=== PATIENT | male | born 1950 | race Caucasian/White ===

== ENCOUNTER 2017-06-03 12:49 | Inpatient (IN) | payer MEDICARE, BC ==
[2017-06-03] MEDS ORDERED: Morphine VIAL* 4 MG/ML VIAL (1 ml vial) IV PRN (13:24)
[2017-06-03] MEDS ORDERED: oxyCODONE/Acetamin 5/325 MG* TAB PO PRN (13:24)
[2017-06-03] MEDS ORDERED: Magnesium Hydroxide LIQ* 30 ML UDC PO PRN ×2 (13:24→13:50)
[2017-06-03] MEDS ORDERED: oxyCODONE TAB* 5 MG TAB PO PRN (13:24)
[2017-06-03] MEDS ORDERED: Morphine INJ* 2 MG/ML 1 ML CARPUJECT IV PRN (13:24)
--- NOTE | 2017-06-03 15:58 | RAD ---
INDICATION: Shoulder infection COMPARISON: None TECHNIQUE: PA and lateral dual-energy views were obtained. FINDINGS: Bones/Soft Tissues: There are no acute bony findings. Cardiomediastinal: The cardiomediastinal silhouette is normal. Lungs: There are no infiltrates. Pleura: There are no pleural effusions. Other: None IMPRESSION: NO ACTIVE DISEASE.
[2017-06-03 16:14] LABS: ABS Basophils 0.1 10^3/ul (0-0.2); ABS Eosinophils 0.1 10^3/ul (0-0.6); ABS Lymphocytes 1.9 10^3/ul (1.0-4.8); ABS Monocytes 0.7 10^3/ul (0-0.8); ABS Neutrophils 7.5 10^3/ul (1.5-7.7); ABS Nucleated RBC 0 10^3/ul; Eosinophil % 1.3 % (0-6); Hematocrit 39 % (42-52); Hemoglobin 13.6 g/dl (14.0-18.0); Lymphocyte % 18.5 % (25-47); Mean Corpuscular HGB Conc 35 g/dl (31-36); Mean Corpuscular Hemoglobin 29 pg (27-31); Mean Corpuscular Volume 82 fL (80-94); Mean Platelet Volume 6.8 um3 (7.4-10.4); Nucleated Red Blood Cells % 0; Platelet Count 376 10^3/ul (150-450); Red Blood Count 4.75 10^6/ul (4.0-5.4); Red Cell Distribution Width 14 % (10.5-15); White Blood Count 10.4 10^3/ul (3.5-10.8)
[2017-06-03 16:22] LABS: INR 1.18 (0.77-1.02)
[2017-06-03 16:35] LABS: EGFR Non-African American 111.3 (>60)
[2017-06-03] MEDS ORDERED: EPINEPHRINE 1 MG/ML 1 ML VIAL ONE ×2 (16:35→16:53)
[2017-06-03] MEDS ORDERED: Bupivacaine 0.25% SDV* 30 ML ONE (16:35)
[2017-06-03] MEDS ORDERED: ceFAZolin 2 GM PREMIX (*) 2 GM/50 ML BAG IVPB ONE (16:46)
[2017-06-03] MEDS ORDERED: Lidocain 1% EPI 1:100,000 * 30 ML MDV ONE (16:52)
[2017-06-03] MEDS ORDERED: Bupivacaine 0.5%* 50 ML VIAL ONE (16:52)
[2017-06-03] MEDS ORDERED: OXACILLIN IV SCH ×2 (17:00)
[2017-06-03] MEDS ORDERED: Oxacillin(*) 2 GM in NS 0.9% 100 ML* 100 ML IVPB SCH (17:00)
[2017-06-03] MEDS ORDERED: SODIUM CHLORIDE IV SCH ×2 (17:00)
[2017-06-03] MEDS ORDERED: Midazolam* 1 MG/ML 2 ML VIAL (2 MG) ONE (17:11)
[2017-06-03] MEDS ORDERED: fentaNYL* 50 MCG/ML 2 ML VIAL (100 MCG VIAL) ONE ×3 (17:11→19:39)
[2017-06-03] MEDS ORDERED: Propofol* 10 MG/ML 20 ML BTL IV PUSH ONE (17:36)
[2017-06-03] MEDS ORDERED: Lidocaine 2% PF * 5 ML VIAL ONE (17:36)
[2017-06-03] MEDS ORDERED: Ondansetron INJ* 2 MG/ML VIAL ONE (17:36)
[2017-06-03] MEDS ORDERED: Phenylephrine IV* 40 MCG/ML 10 ML SYRINGE ONE (17:47)
[2017-06-03] MEDS ORDERED: Ketorolac INJ* 30 MG/ML 1 ML VIAL ONE (18:01)
[2017-06-03] MEDS ORDERED: Acetaminophen TAB* 325 MG PO PRN (18:46)
[2017-06-03] MEDS ORDERED: Naloxone* 0.4 MG/ML 1 ML VIAL IV PRN (18:46)
[2017-06-03] MEDS ORDERED: HYDROmorphone INJ* 1 MG/ML CARPUJECT SYRINGE IV PRN (18:46)
[2017-06-03] MEDS ORDERED: PROCHLORPERAZINE INJ 5 MG/ML 2 ML VIAL IV PRN (18:46)
[2017-06-03] MEDS ORDERED: Metoclopramide IV* 5 MG/ML 2 ML VIAL IV PRN (18:46)
[2017-06-03] MEDS ORDERED: Dextrose 50% Syringe 50 ML* 25 GM/50 ML SYRINGE IV PUSH PRN (19:11)
[2017-06-03] MEDS ORDERED: Insulin LISPRO* 1 UNITS UNIT SUBCUT ONE (19:30)
[2017-06-03] MEDS: Insulin LISPRO* 1 UNITS UNIT SUBCUT SCH (19:34)
[2017-06-03] MEDS: fentaNYL* 50 MCG/ML 2 ML VIAL (100 MCG VIAL) IV PRN ×4 (19:41→20:00)
[2017-06-03] MEDS ORDERED: HYDROmorphone INJ* 2 MG/ML CARPUJECT SYRINGE ONE (20:03)
[2017-06-03] MEDS ORDERED: Magnesium Hydroxide LIQ* 30 ML UDC PO SCH (21:00)
[2017-06-03] MEDS: oxyCODONE/Acetamin 5/325 MG* TAB PO PRN (21:50)
[2017-06-03] MEDS: OXACILLIN IV SCH ×2 (21:58)
[2017-06-03] MEDS: SODIUM CHLORIDE IV SCH ×2 (21:58)
[2017-06-03] MEDS ORDERED: Zolpidem TAB* 5 MG PO PRN (23:02)
[2017-06-04] MEDS: Ketorolac INJ* 15 MG/ML 1 ML VIAL IV PUSH SCH ×4 (01:53→21:32)
[2017-06-04] MEDS: SODIUM CHLORIDE IV SCH ×12 (01:58→21:34)
[2017-06-04] MEDS: OXACILLIN IV SCH ×12 (01:58→21:34)
--- NOTE | 2017-06-04 02:25 | CONS ---
CC: Peter Jeffers MD * CONSULTATION NOTE: DATE OF CONSULT: 06/03/17 TIME OF EVALUATION: 2200 PRIMARY CARE PHYSICIAN: Peter Jeffers MD REQUESTING PHYSICIAN FOR CONSULTATION: Dr. Wyatt. REASON FOR CONSULT: Medical management. HISTORY OF PRESENT ILLNESS: This is a 67-year-old male with a past medical history of rheumatoid arthritis, on Rituxan and diabetes, who was directly admitted after having his right shoulder joint aspirated and found to be concerning for a septic joint. He was taken to the OR this evening for a washout of his right shoulder. His culture has come back positive for MSSA. The patient states he was at an arena on 05/02/17. When he went to stretch his arms out, when he brought his right arm back, he felt acute sudden pain in his right shoulder. He has been having pain since then. He did go to [place] to get a workup done, recommended orthopedic evaluation. He could not get in to see Dr. Wyatt until 05/29/17. At that time, an MRI was ordered. He followed up with Dr. Wyatt today on 06/03/17 where the MRI showed large effusion. He aspirated it. It was a viscous yellowish green fluid and he was called. The Gram stain was positive for 4+ gram-positive cocci. The patient states a week prior to this, he began having night sweats and chills. He thought it was related to the medications he was taking. He denied any fevers. No nausea or vomiting. No chest pain. No shortness of breath. He denied any recent injections into his shoulder joint. Denies any other trauma other than stretching his arms on 05/02/17. Otherwise, review of systems is negative. PAST MEDICAL HISTORY: 1. Rheumatoid arthritis, on Rituxan. 2. Diabetes. 3. History of polio. 4. Obesity. 5. Hyperlipidemia. PAST SURGICAL HISTORY: 1. History of neck surgery. 2. History of hernia repair. 3. History of vasectomy. 4. History of left knee surgery. MEDICATIONS: 1. Metformin 1000 mg p.o. b.i.d. 2. Pravastatin 20 mg at bedtime. 3. Fluoxetine 10 mg daily. 4. Celecoxib 100 mg p.o. b.i.d. as needed. 5. Ambien 5 mg at bedtime as needed. 6. Rituxan infusion q.6 months, his last infusion was in December. ALLERGIES: AZITHROMYCIN. FAMILY HISTORY: No history of early cardiac disease. Otherwise unremarkable. SOCIAL HISTORY: The patient is . He is retired from the [email or web address] office. He quit smoking 20 years ago. He smoked less than a pack per day for 20 years. Rare alcohol use. No illicit drug use. His healthcare proxy is his son, Davis. He is . REVIEW OF SYSTEMS: A 14-point review of systems as mentioned in the HPI. CODE STATUS: Full code. PHYSICAL EXAM: Vitals: Temp 98.4, pulse rate 93, respiratory rate 16, oxygen saturation 96% on room air, and blood pressure 148/73. General: In no acute distress. Resting comfortably. HEENT: Head is normocephalic. Pupils are equal, round, and reactive to light and anicteric. Oropharynx: Mucous membranes are moist. Neck: Supple. No lymphadenopathy. Cardiac: Regular rate and rhythm. Soft systolic murmur heard throughout. Respiratory: Clear to auscultation. No wheezing, rhonchi, or rales. Abdomen: Soft, nontender, nondistended. Extremities: No cyanosis, clubbing, or edema. +2 DP. He has a large bandage wrapped with ice applied over his right shoulder. His extremities are warm and good pulses bilaterally. Neurological: Alert, awake, and oriented x3. No gross focal neurological deficits. DIAGNOSTIC STUDIES/LAB DATA: White count 10.4, hemoglobin 13.6, hematocrit 39, platelets 376. INR is 1.18. Sodium 134, potassium 4, chloride 99, bicarb 27, BUN 14, creatinine 0.71, glucose 310, CRP of 119. ASSESSMENT: This is a 67-year-old male with a past medical history of rheumatoid arthritis, on Rituxan who presented as a direct admission for a right shoulder washout in the setting of a positive joint aspiration of MSSA. Right septic joint. Cultures are positive for MSSA. He is on Oxacillin, would consider Infectious Disease consult to determine long-term management of IV antibiotics and transition to p.o. antibiotics. CHRONIC MEDICAL PROBLEMS: 1. Diabetes. We will hold his oral agents and continue him on lispro. He may need to be placed on Lantus. We will add on a hemoglobin A1c. 2. For his hyperlipidemia, we will hold the pravastatin as we do not have this on formulary. 3. Continue him on Ambien as needed and his fluoxetine. 4. FEN. Diabetic diet. 6. DVT prophylaxis per Surgery. 7. Code status full code. Thank you for this consultation. We will follow along with you. TIME SPENT: Greater than 45 minutes spent doing the consultation, more than half the time was spent in direct patient contact. [id number] #: [id number] FAVIO
[2017-06-04] MEDS: Heparin VIAL(*) 5000 UNITS/ML VIAL (FIVE THOUSAND) SUBCUT SCH ×3 (05:50→21:36)
[2017-06-04] MEDS ORDERED: metFORMIN* 1,000 MG TAB PO SCH ×2 (06:00→08:00)
[2017-06-04 06:08] LABS: Hematocrit 39 % (42-52); Hemoglobin 13.4 g/dl (14.0-18.0); Mean Platelet Volume 6.6 um3 (7.4-10.4); Platelet Count 336 10^3/ul (150-450)
[2017-06-04 06:21] LABS: EGFR Non-African American 83.6 (>60)
--- NOTE | 2017-06-04 08:59 | PN ---
Progress Note - Progress Note Date of Service: 06/04/17 SOAP: Subjective: []Patient seen at bedside. He feels well without fever or chills. Right shoulder pain is still present but improved. He has not tried to move his shoulder yet as he has become used to guarding it. Objective: [] Vital Signs Temp 97.5 F 06/04/17 03:41 Pulse 88 06/04/17 03:41 Resp 18 06/04/17 07:37 BP 136/69 06/04/17 03:41 Pulse Ox 92 06/04/17 03:41 Intake & Output 06/03/17 06/04/17 06/04/17 18:59 06:59 18:59 Intake Total 600 1048 Output Total 2049 Balance 600 -1002 Weight 200 lb 191 lb 14.4 oz Intake: IV Fluids 600 LR 600 IVPB 188 Oxacillin 188 Oral 0 860 Output: Urine 2049 Other: Date of Last Bowel 06/03/17 Movement # Bowel Movements 1 0 Estimated Stool Amount Medium Laboratory Last Values WBC 10.4 10^3/ul (3.5-10.8) 06/03/17 16:03 RBC 4.75 10^6/ul (4.0-5.4) 06/03/17 16:03 Hgb 13.4 g/dl (14.0-18.0) L 06/04/17 05:59 Hct 39 % (42-52) L 06/04/17 05:59 MCV 82 fL (80-94) 06/03/17 16:03 MCH 29 pg (27-31) 06/03/17 16:03 MCHC 35 g/dl (31-36) 06/03/17 16:03 RDW 14 % (10.5-15) 06/03/17 16:03 Plt Count 336 10^3/ul (150-450) 06/04/17 05:59 MPV 6.6 um3 (7.4-10.4) L 06/04/17 05:59 Neut % (Auto) 72.4 % (38-83) 06/03/17 16:03 Lymph % (Auto) 18.5 % (25-47) L 06/03/17 16:03 [place] % (Auto) 7.2 % (0-7) H 06/03/17 16:03 Eos % (Auto) 1.3 % (0-6) 06/03/17 16:03 Baso % (Auto) 0.6 % (0-2) 06/03/17 16:03 Absolute Neuts (auto) 7.5 10^3/ul (1.5-7.7) 06/03/17 16:03 Absolute Lymphs (auto) 1.9 10^3/ul (1.0-4.8) 06/03/17 16:03 Absolute Monos (auto) 0.7 10^3/ul (0-0.8) 06/03/17 16:03 Absolute Eos (auto) 0.1 10^3/ul (0-0.6) 06/03/17 16:03 Absolute Basos (auto) 0.1 10^3/ul (0-0.2) 06/03/17 16:03 Absolute Nucleated RBC 0 10^3/ul 06/03/17 16:03 Nucleated RBC % 0 06/03/17 16:03 ESR 0 mm/Hr (0-40) 06/03/17 16:03 INR (Anticoag Therapy) 1.18 (0.77-1.02) H 06/03/17 16:02 Sodium 136 mmol/L (139-145) L 06/04/17 05:59 Potassium 4.4 mmol/L (3.5-5.0) 06/04/17 05:59 Chloride 102 mmol/L (101-111) 06/04/17 05:59 Carbon Dioxide 27 mmol/L (22-32) 06/04/17 05:59 Anion Gap 7 mmol/L (2-11) 06/04/17 05:59 BUN 19 mg/dL (6-24) 06/04/17 05:59 Creatinine 0.91 mg/dL (0.67-1.17) 06/04/17 05:59 Est GFR ( Amer) 107.5 (>60) 06/04/17 05:59 Est GFR (Non-Af Amer) 83.6 (>60) 06/04/17 05:59 BUN/Creatinine Ratio 20.9 (8-20) H 06/04/17 05:59 Glucose 398 mg/dL (70-100) H 06/04/17 05:59 POC Glucose (mg/dL) 390 mg/dL (70-100) H 06/04/17 07:27 Calcium 8.6 mg/dL (8.6-10.3) 06/04/17 05:59 C-Reactive Protein 119.52 mg/L (< 5.00) H 06/03/17 16:03 General: Well appearing, NAD RUE: Right shoulder dressing CDI. No surrounding erythema. Diffuse moderate tenderness remains but certainly improved from yesterday's exquisite tenderness. Shoulder PROM FF to 80 degrees, ABD to 30 degrees endpoints limited by pain. Elbow ROM much improved easily 0-90. Wrist flexion/extension intact. Digits 1-5 with intact flexion, extension, abduction, adduction, finger to thumb opposition. Sensation intact distally. 2+ radial pulse, capillary refill less than two seconds. Assessment: []POD 1 s/p right shoulder washout + MSSA Plan: []Blood cultures and echo pending ID consult placed PT/OT ROM/WBAT as tolerated Heparin while in house
[2017-06-04] MEDS: FLUoxetine CAP* 10 MG PO SCH (09:09)
[2017-06-04] MEDS: Insulin LISPRO* 1 UNITS UNIT SUBCUT SCH ×4 (09:09→21:38)
[2017-06-04] MEDS: oxyCODONE/Acetamin 5/325 MG* TAB PO PRN ×3 (10:15→21:34)
--- NOTE | 2017-06-04 10:29 | ECHO ---
Patient: MILLA BURR [facility] Rec#: [id number] : 1950 Date: 06/04/2017 Age: 67y Height: 185.4 cm / 73.0 in Weight: 86.6 kg / 190.9 lbs Sex: M BSA: 2.1 Room#: 352 Admit Date#: 06/03/2017 Type: Inpatient Referring: Melissa Covington MD Reading: Shaila Parsons MD Yeast Pusher: Charlotte Bishop RN RDCS CC: Peter Jeffers MD Transthoracic Echocardiogram Indication: Cardiac murmur, septic right shoulder BP: 136/69 HR: 86 Rhythm: NSR with PACs Findings History: RA, DM, HLD, obesity, post-polio syndrome, former smoker Technical Comments: The study quality is fair. The study is technically limited due to the patient's smoking history. Completed at 0900. Left Ventricle: The left ventricular chamber size is normal. There is no left ventricular hypertrophy. Global left ventricular wall motion and contractility are within normal limits. There is normal left ventricular systolic function. The estimated ejection fraction is 55-60%. There is no consistent Doppler evidence of clinically significant diastolic dysfunction. Left Atrium: The left atrial chamber size is normal. Right Ventricle: The right ventricular chamber size and systolic function are within normal limits. Right Atrium: The right atrial cavity size is normal. Aortic Valve: The aortic valve is trileaflet. The aortic valve leaflets are mildly thickened.Sclerosis of the NCC, calcified nodule on the edge of the cusp, central, c/w calcific sclerosis. RCC mildly slerotic as well. Normal valve excuresion. There is aortic annular calcification. There is mild aortic regurgitation. There is no evidence of aortic stenosis. There is no aortic vegetation present. Mitral Valve: Mild mitral annular calcification present. The mitral valve leaflets are mildly thickened. Mild subvalvular thickening of the mitral valve is visualized. There is no evidence of mitral regurgitation. There is no evidence of mitral stenosis. No vegetation is observed on the mitral valve. Tricuspid Valve: The tricuspid valve leaflets are mildly thickened. There is trace tricuspid regurgitation. Unable to estimate the right ventricular systolic pressure. There is no tricuspid stenosis. No vegetation is observed on the tricuspid valve. Pulmonic Valve: The pulmonic valve appears normal. There is a trace pulmonic regurgitation. There is no pulmonic stenosis. No vegetation is observed on the pulmonic valve. Pericardium: There is no significant pericardial effusion. A pericardial fat pad is visualized. Aorta: There is no dilatation of the ascending aorta. There is no dilatation of the aortic arch. There is mild dilatation of the aortic root. Pulmonary Artery: The main pulmonary artery appears normal. Venous: The inferior vena cava appears normal in size. There is less than 50% respiratory change in the inferior vena cava dimension. Conclusions The left ventricular chamber size is normal. Global left ventricular wall motion and contractility are within normal limits. The estimated ejection fraction is 55-60%. The right ventricular chamber size and systolic function are within normal limits. No vegetations identified, sclerotic left sided valves. The aortic valve is trileaflet with sclerosis of the NCC, calcified nodule on the edge of the cusp, central, c/w calcific sclerosis. RCC mildly slerotic as well and all leflets show normal valve excursion. There is mild aortic regurgitation. The mitral valve leaflets are mildly thickened. There is trace tricuspid regurgitation. There is a trace pulmonic regurgitation. No prior echo to compare. Measurements Name Value Normal Range RVIDd (AP) 2D 2.6 cm (0.9 - 2.6) RVDdMajor (2D) 3.1 cm (2.2 - 4.4) RAd ISD 4CH 3.8 cm (3.4 - 4.9) RA (A4C)W 3.6 cm (2.9 - 4.6) IVSd (2D) 1 cm (0.6 - 1) LVPWd (2D) 1 cm (0.6 - 1) LVIDd (2D) 4 cm (3.6 - 5.4) LVIDs (2D) 2.4 cm - LV FS (2D) 40 % (25 - 45) Aortic Annulus 2.2 cm (1.4 - 2.6) Ao root diameter (2D) 3.9 cm (2.1 - 3.5) Ascending Ao 3.2 cm (2.1 - 3.4) Aortic arch 2.1 cm (1.8 - 3.4) LA dimension (AP) 2D 3.4 cm (2.3 - 3.8) LAd ISD 4CH 4.5 cm (2.9 - 5.3) LA ISD 4CH W 3.4 cm (2.5 - 4.5) Name Value Normal Range LA ESV SP 4CH (A/L) 25 ml - LA ESV SP 2CH (A/L) 29 ml - LA ESV BP (A/L) 27 ml - LA ESV BP (A/L) index 13 ml/m2 - LA ESV SP 4CH (MOD) 24 ml - LA ESV SP 2CH (MOD) 28 ml - Name Value Normal Range MV E-wave Vmax 0.57 m/sec - MV deceleration time 262 msec - MV A-wave Vmax 0.71 m/sec - MV E:A ratio 0.8 ratio - LV septal e' Vmax 0.07 m/sec - LV lateral e' Vmax 0.11 m/sec - LV E:e' septal ratio 8.1 ratio - LV E:e' lateral ratio 5.2 ratio - Name Value Normal Range AV Vmax 1.4 m/sec - AV VTI 26.1 cm - AV peak gradient 8.1 mmHg - AV mean gradient 4.8 mmHg - LVOT Vmax 1 m/sec - LVOT VTI 17.4 cm - LVOT peak gradient 4.2 mmHg - LVOT mean gradient 2.5 mmHg - CHA Vmax 0.79 m/sec - Name Value Normal Range IVC diameter 2.1 cm - Name Value Normal Range PV Vmax 0.82 m/sec -
[2017-06-04 10:43] LABS: Urine Appearance Clear; Urine Blood Negative (Negative); Urine Color Yellow; Urine Ketones 1+ (Negative); Urine Protein Negative (Negative); Urine Specific Gravity 1.032 (1.010-1.030); Urine Urobilinogen Negative (Negative)
--- NOTE | 2017-06-04 10:43 | HP ---
HISTORY AND PHYSICAL: DATE OF ADMISSION: 06/03/17 ATTENDING PROVIDER: Dr. Wyatt * (DICTATED BY CALEB HERBERT) CHIEF COMPLAINT: Right shoulder pain. HISTORY OF PRESENT ILLNESS: Mr. Payton is a 67-year-old male who presents to [facility] today after being seen at our [facility] by Dr. Wyatt. In our office today, the patient was having difficulty with active range of motion of his elbow due to pain in the shoulder as well as any range of motion in the shoulder whatsoever. First onset of pain was May 02 while the patient was seated in a stadium chair, he reached across the chair, and when he moved his arm back to neutral position, he had sudden pain in his right shoulder which has been present ever since worsening throughout the past month. The patient reports that he cannot lift his right arm and it is very difficult for him to sleep. Pain today is rated as a 6/10, localized to the right shoulder. One to two weeks ago, the patient reports that he did have subjective fever and chills, which have now resolved. He denies any trauma to the shoulder. He has never had surgery on the shoulder. He has no prosthetic joints. The patient does have a history of rheumatoid arthritis for which he is on Rituxan infusions with his next infusion in 3 weeks. 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 Warner in [place], his primary care is Dr. Jeffers. The patient does not have a history of frequent infections. Today at the office , his shoulder was aspirated revealing 12 mL of a thick viscous yellow-greenish fluid, which was positive for 4+ gram positive cocci indicating infection of the right glenohumeral joint. The patient has no history of heart attack, stroke or blood clot. He has no history of blood transfusion. He has tolerated the anesthesia well in the past. PAST MEDICAL HISTORY: Positive for: 1. Postpolio syndrome. 2. Diabetes. 3. Rheumatoid arthritis. 4. Obesity. 5. Hyperlipidemia. 6. Epistaxis on occasion . PAST SURGICAL HISTORY: 1. Cervical fusion. 2. Hernia repair. 3. Vasectomy. 4. Arthroscopic knee surgery. 5. Cholecystectomy. FAMILY HISTORY: Positive for diabetes. SOCIAL HISTORY: The patient lives alone in [place]. He is a former smoker, he quit 18 years ago. 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 REVIEW OF SYSTEMS: General: The patient feels well. Aside from right shoulder pain, he denies any fever or chills. HEENT: The patient denies any headache, changes in vision, changes in hearing. Cardiovascular: The patient denies any chest pain, denies any history of cardiac disease. Denies any history of heart attack. Respiratory: The patient denies shortness of breath or cough. GI: The patient confirms recent constipation, which is now resolved. Denies any abdominal upset, nausea, vomiting, diarrhea. Genitourinary: The patient denies any dysuria or urinary obstruction. Musculoskeletal: The patient has right shoulder pain without history of trauma. He has no pain in his other joints, though he does have a history of left knee effusion, which resolved without antibiotic treatment, resolved with steroid injection only. Skin: No rashes. No open lesions. No drainage from the right shoulder. Neuro: No history of stroke. Endocrine: History of diabetes. Hematology: No easy bleeding or bruising. No history of blood clot. PHYSICAL EXAMINATION GENERAL: The patient is sitting in bed, he is well-appearing, in no acute distress. He carries on appropriate conversation. VITAL SIGNS: Temperature 98.0, pulse 89, respiratory rate 20, oxygen saturation 97, blood pressure 151/74. HEENT: Head is normocephalic, atraumatic. Extraocular movements intact. RESPIRATORY: Clear to auscultation bilaterally without wheezes, rales or rhonchi. CARDIO: S1, S2. No obvious murmur heard. ABDOMEN: Bowel sounds normoactive, soft, nontender without any notable masses. MUSCULOSKELETAL: Right upper extremity: No erythema, draining lesions or ecchymosis about the right shoulder. The skin is intact. Range of motion of the shoulder is very limited, limited to roughly 30 degrees of forward flexion and abduction due to exquisite pain that causes the patient to grimace. He is tender to palpation throughout the shoulder without any area of point tenderness. He similarly has much difficulty with range of motion of the right elbow, though he reports that this is due to tension and pain in the shoulder rather than in the elbow itself. He has no tenderness to palpation throughout the elbow. He has good range of motion of the elbow passively, but when he actively engages elbow, he has great pain in his right shoulder. He has full range of motion in his wrist and digits of the right upper extremity. He moves bilateral lower extremities and the left upper extremity well. NEUROLOGIC: Sensation intact throughout the right upper extremity as well as distally in the left upper extremity as well as bilateral lower extremities. SKIN: The patient has no erythema, no rashes, no lesions, no draining lesions noted. DIAGNOSTIC DATA/LABORATORY STUDIES: MRI as reviewed in the office today showed thinning of his supraspinatus as well as labral tear as well as a large effusion of the glenohumeral joint. Laboratory Studies: Synovial fluid from the right shoulder was yellow and cloudy. White blood cell count 189,765. Microbiology revealed Staph aureus. ASSESSMENT: Right shoulder effusion and infection. PLAN: The patient will be taken to the operating room this evening for washout of his right shoulder. He will be n.p.o. until this time. His oral hyperglycemic medication should be held until after surgery and until he has resumed a normal diet. The hospitalist service has been consulted. In the meanwhile, I have ordered a CBC, CRP, CMP, sed rate, INR, blood cultures, urinalysis, chest x-ray and EKG. The patient should have an echocardiogram, which is okay until after surgery per Medicine due to a MSSA infected joint. CALEB HERBERT [id number]/CPS #: [id number] MTDD
[2017-06-04] MEDS ORDERED: Insulin LISPRO* 1 UNITS UNIT SUBCUT ONE (13:21)
[2017-06-04] MEDS ORDERED: Dextrose 50% Syringe 50 ML* 25 GM/50 ML SYRINGE IV PUSH PRN (13:21)
--- NOTE | 2017-06-04 15:14 | OP ---
DATE OF OPERATION: 06/03/17 - ROOM #352 DATE OF : 54 SURGEON: Dwayne Wyatt MD ANESTHESIA: Regional and general. PRE-OP DIAGNOSIS: Right shoulder infection. POST-OP DIAGNOSIS: Right shoulder infection. OPERATIVE PROCEDURE: 1. Right shoulder arthroscopy. 2. Arthroscopic washout. 3. Debridement. ANESTHESIA: General. ESTIMATED BLOOD LOSS: Minimal. COMPLICATIONS: None. SUMMARY: Mr. Payton is a 67-year-old male who I had last seen in 2012. He had represented to the office on 05/29/17 complaining of right shoulder pain. On , he had reported a minor trauma to the shoulder where he had been stretching on a stadium position with the arm stretched out and had felt a sudden pain in the right shoulder with bringing the shoulder forward. He did not have any pain. He did not have any fevers. There was no open injury to the shoulder. When I had examined him on the 05/29/17, he had significant pain even trying to just bring the elbow upwards into flexion. So, I thought he had a dislocation of his biceps tendon, which would explain some of the pain when moving his elbow. He underwent an MRI and presented to the office this morning with those results. It showed that he had a significant effusion to the shoulder. I discussed with him that I would like to see what is going on with the shoulder because if this was just an inflammatory reaction, a steroid injection would help. So, he was aspirated in the office and 12 cc of a thick pus like fluid was obtained. This was sent for culture, Gram stain and analysis and it came back with 176,000 white blood cells, as well as 4+ neutrophils, with 4+ gram-positive cocci. PCR found that it was staph, but not MRSA. Once I saw the positive cocci on Gram stain, I had called him and had him directly admitted to the floor, so that he would hopefully be seen by the hospitalist service and I added him on to the OR for a washout. I discussed with him that washing of the shoulder should help to decrease the bacterial load and hopefully let the shoulder feel better. Risks of surgery such as continued infections, scar formation and pain were discussed and he did wish to proceed. DESCRIPTION OF PROCEDURE: The patient was brought back to the OR and LMA was placed. He was then sat up in the beach-chair position. Care was taken to make sure that his left arm was nicely padded, so that his cubital tunnel was nice and free. Right shoulder area was prepped and draped. Portal sites were preinjected using a 50:50 mixture of 0.5% Marcaine with 1% lidocaine with epinephrine. A standard posterior portal was made first using a #11 blade blunt trocar. The sheath was easily introduced into the shoulder and pulling up the trocar, several cc of thick fluid oozed out. Camera was introduced into the sheath and suction was run. Fluids were turned on and letting the shoulder wash out to remove some of the pus was first done. It could be seen he was not denuded of cartilage on the glenohumeral joint surfaces. Under direct vision, using an outside in technique, anterior portal was established and a shaver was introduced and used to gently debride the synovium and I allowed the shaver to run. Once I had gotten a good view within the shoulder joint, 3 L bag of saline , which had been mixed with 30 cc of Betadine, was opened so that by this I would get the Betadine solution in all the nooks and crevices within the shoulder joints. Shaver was run almost continuously through this and a total of 5 L normal saline and 6 L of the Betadine saline were run through the shoulder. By the end, it looked much top cleaner. All instrumentation was removed and the portal sites were closed using 4-0 nylon sutures. Shoulder was injected with a total of 20 cc of Marcaine mixed with 20 of lidocaine. Sterile dressing was applied in the OR. The patient had the LMA removed in the arm, was stable on transfer to the recovery room. [id number]/[facility] #: [id number] [facility] HOSPITALGladys
--- NOTE | 2017-06-04 15:39 | CONS ---
CONSULTATION REPORT: DATE OF CONSULT: 06/04/17 REQUESTING PHYSICIAN: Dr. Covington CONSULTING SERVICE: Infectious Disease. REASON FOR CONSULT: Septic right shoulder. IMPRESSION: 1. Septic arthritis of the right shoulder, glenohumeral joint due to methicillin- sensitive Staphylococcus aureus. He has had incision and debridement on 06/03/17. 2. Rheumatoid arthritis, on Rituxan. RECOMMENDATIONS: Include; 1. Aquacillin 2 g every 4 hours while he is here and transition to cefazolin 2 g every 8 hours for outpatient therapy to complete 4 to 6 weeks of treatment. 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 Warner in [place] regarding timing of his next rituximab treatment. I discussed with Mr. Payton the need for a PICC line, home IV antibiotics, weekly blood draws, and close followup. 2. We will follow up the blood cultures and his transesophageal echocardiogram result. HISTORY OF PRESENT ILLNESS: This is a 67-year-old male with rheumatoid arthritis, on rituximab, admitted with right shoulder pain. It had there for 2 to 3 weeks and it was progressively worse and included fever, chills, sweats with decreased appetite. He had a shoulder aspirated by Dr. Wyatt as an outpatient. That fluid was sent for analysis and had 190,000 white cells, 92% neutrophils, 4+ gram- positive cocci, the PCR is positive for Staph aureus and negative for methicillin- resistant Staphylococcus aureus. C-reactive protein initially 120. He had a washout last night, which he tolerated well. He has had ongoing shoulder pain. No other joints are bothering him and no spine pain. There is no prosthetic material present. He has not had an infection requiring hospitalization in the past. He did have a large effusion of the left knee while living in [place], which was treated with aspiration and steroid injection and has been asymptomatic since. He did not recall other rash , other joint involvement or prolonged pneumonia while living in [place]. PAST MEDICAL HISTORY: 1. Rheumatoid arthritis. 2. Diabetes. 3. Postpolio syndrome. 4. Obesity. 5. Hyperlipidemia. 6. History of cervical spine surgery. 7. Status post hernia repair. 8. Status post vasectomy. MEDICATIONS: 1. Fluoxetine. 2. Ketorolac. 3. Magnesium. 4. Oxacillin 2 g every 4 hours. 5. Ambien. 6. Pravastatin. ALLERGIES: AZITHROMYCIN. FAMILY HISTORY: No cardiac disease or tuberculosis. SOCIAL HISTORY: Lives in [facility]. Recently moved back from [place]. 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 REVIEW OF SYSTEMS: A 14-point review of systems was negative except as noted above in the history of present illness. PHYSICAL EXAM: Vital Signs: Temperature is 37, heart rate 90, respiratory rate 20, blood pressure 134/68, oxygen saturation 92% on room air. In general, he is awake and not in distress. Neurologic: He is oriented x3. Follows all commands. HEENT: There is no conjunctival hemorrhage. Oropharynx without lesions. Neck is supple without mass. Lymph Nodes: There is no inguinal, axillary, or epitrochlear lymphadenopathy. Heart is regular rate and rhythm without murmurs, rubs or gallops. Lungs are clear to auscultation bilaterally. Abdomen: Soft, nontender, nondistended. There are bowel sounds present. Skin: There is no rash or splinter hemorrhages. Musculoskeletal: Right shoulder, diffuse edema, warmth, and tenderness. Pain with range of motion. There is no spine tenderness or other joint synovitis. DIAGNOSTIC STUDIES/LAB DATA: Creatinine 0.9. White blood cell count 10, hemoglobin 13, platelets 376. IMPRESSION/RECOMMENDATIONS: Please see impression and recommendations as outlined above, which I have discussed with Dr. Covington. Thank you for asking me to see Mr. Payton in consultation. [id number]/[facility] #: [id number] MTDD
[2017-06-04] MEDS ORDERED: Insulin GLARGINE(*) 1 UNITS UNIT SUBCUT SCH (16:30)
[2017-06-04] MEDS: NS 0.9% 1000 ML* 1,000 ML IV SCH (16:53)
--- NOTE | 2017-06-04 16:54 | PN ---
Subjective Date of Service: 06/04/17 Interval History: Patient was seen and examined at bedside. He reports doing well overall, just feels tired due to lack of sleep. Reports some R shoulder pain at operative site , relived with analgesics. Denies chest pain, weakness, dizziness or blurred vision. No fever or chills. I received a phone call earlier with blood glucose level >400. He otherwise has no complaints today. Family History: Unchanged from Admission Social History: Unchanged from Admission Past Medical History: Unchanged from Admission Objective Active Medications: Dextrose (D50w Syringe 50 Ml*) 12.5 gm IV PUSH .FOR FS < 60 - SS PRN PRN Reason: FS < 60 Fluoxetine HCl (Prozac Cap*) 10 mg PO DAILY [facility] Last Admin: 06/04/17 09:09 Dose: 10 mg Heparin Sodium (Porcine) (Heparin Vial(*)) 5,000 units SUBCUT Q8HR [facility] Last Admin: 06/04/17 13:41 Dose: 5,000 units Oxacillin Sodium 2 gm/ Sodium (Chloride) 50 mls @ 100 mls/hr IV Q4H [facility] Last Admin: 06/04/17 13:41 Dose: 100 mls/hr Sodium Chloride (Ns 0.9% 1000 Ml*) 1,000 mls @ 75 mls/hr IV PER RATE [facility] Insulin Glargine (Lantus(*)) 15 units SUBCUT Q24H [facility] Insulin Human Lispro (Humalog*) 0 units SUBCUT ACHS [facility] PRN Reason: Protocol Ketorolac Tromethamine (Toradol Inj*) 15 mg IV PUSH Q6H [facility] Last Admin: 06/04/17 13:41 Dose: 15 mg Magnesium Hydroxide (Milk Of Magnesia Liq*) 30 ml PO Q6H PRN PRN Reason: constipation Magnesium Hydroxide (Milk Of Magnesia Liq*) 30 ml PO BID PRN PRN Reason: CONSTIPATION Morphine Sulfate (Morphine Inj (Syringe)*) 2 mg IV Q2H PRN PRN Reason: PAIN - SEVERE Morphine Sulfate (Morphine Vial*) 4 mg IV Q2H PRN PRN Reason: PAIN - BREAKTHROUGH Oxycodone HCl (Roxycodone Tab*) 10 mg PO Q4H PRN PRN Reason: PAIN - SEVERE Oxycodone/Acetaminophen (Percocet 5/325 Tab*) 2 tab PO Q4H PRN PRN Reason: PAIN - MODERATE Last Admin: 06/04/17 10:15 Dose: 2 tab Oxycodone/Acetaminophen (Percocet 5/325 Tab*) 1 tab PO Q4H PRN PRN Reason: PAIN - MILD Last Admin: 06/04/17 05:54 Dose: 1 tab Pravastatin Sodium (Pravachol (Nf)) 20 mg PO 1700 [facility] Zolpidem Tartrate (Ambien Tab*) 5 mg PO BEDTIME PRN PRN Reason: INSOMNIA Additional Medications: Lantus 15 units added to Lispro sliding scale regimen Vital Signs - 8 hr 06/04/17 06/04/17 06/04/17 09:08 10:15 12:03 Temperature 99.2 F 97.6 F Pulse Rate 93 81 Respiratory 20 18 20 Rate Blood Pressure 134/68 115/61 (mmHg) O2 Sat by Pulse 92 92 Oximetry 06/04/17 06/04/17 06/04/17 12:47 14:27 15:39 Temperature 98.5 F Pulse Rate 76 Respiratory 18 16 Rate Blood Pressure 117/59 (mmHg) O2 Sat by Pulse 92 93 Oximetry 06/04/17 16:00 Temperature Pulse Rate Respiratory Rate Blood Pressure (mmHg) O2 Sat by Pulse 92 Oximetry Oxygen Devices in Use Now: None Appearance: Awake, alert and oriented x3. Laying on bed, comfortable and NAD. Eyes: No Scleral Icterus, PERRLA Ears/Nose/Mouth/Throat: Mucous Membranes Moist Neck: NL Appearance and Movements; NL JVP, Trachea Midline Respiratory: Symmetrical Chest Expansion and Respiratory Effort, Clear to Auscultation Cardiovascular: NL Sounds; No Murmurs; No JVD, RRR Abdominal: NL Sounds; No Tenderness; No Distention Extremities: No Edema, No Clubbing, Cyanosis Neurological: Alert and Oriented x 3, NL Muscle Strength and Tone Lines/Tubes/Other Access: Clean, Dry and Intact Peripheral IV - NS 0.9% started @ 75 ml/hr Nutrition: Taking PO's Result Diagrams: 06/04/17 05:59 06/04/17 05:59 Microbiology and Other Data: Microbiology 06/03/17 16:09 Aerobic Blood Culture - Preliminary No Source Provided No Growth Day 1 Anaerobic Blood Culture - Preliminary No Growth Day 1 06/03/17 16:02 Aerobic Blood Culture - Preliminary No Source Provided No Growth Day 1 Anaerobic Blood Culture - Preliminary No Growth Day 1 Assess/Plan/Problems-Billing Assessment: A 67 y/o male with PMH of RA, DM and hyperlipidemia, who was admitted with septic right shoulder, s/p R shoulder washout in the operating room on 06/03/2017 , who is experiencing hyperglycemia despite Humolog coverage per sliding scale, likely secondary to infectious process. - Patient Problems (1) Septic arthritis of shoulder, right Current Visit: Yes Status: Acute Comment: - Continue Oxacillin per ortho. Likely Staph as a causative organism, awaiting final culture and sensitivities. - Analgesics, pain is generally well controled. (2) Diabetes mellitus Comment: - Inadequate glycemic control, likely secondary to infection. - Plan to intiate Lantus 15 units q24 hrs - Continue Lispro coverage per sliding scale qAC and qHS; moving up the scale for more aggresive coverage. (3) Hyperlipidemia associated with type 2 diabetes mellitus Comment: - Continue Statin coverage. (4) DVT prophylaxis Current Visit: Yes Comment: SubQ Heparin (5) Full code status Current Visit: Yes Comment: Patient is full code. Status and Disposition: Mr. Payton is generally doing well. Will continue his insulin coverage and monitor blood sugar. He would benefit from PT/OT in anticipation for discharge in next 1-2 days. Will continue to follow him up for optimal glycemic control.
[2017-06-04] MEDS: PRAVASTATIN 20 MG PO SCH (17:12)
[2017-06-05] MEDS: SODIUM CHLORIDE IV SCH ×10 (00:56→20:15)
[2017-06-05] MEDS: OXACILLIN IV SCH ×10 (00:56→20:15)
[2017-06-05] MEDS: NS 0.9% 1000 ML* 1,000 ML IV SCH ×2 (00:56→19:35)
[2017-06-05] MEDS: Ketorolac INJ* 15 MG/ML 1 ML VIAL IV PUSH SCH ×4 (02:36→20:17)
[2017-06-05] MEDS: oxyCODONE/Acetamin 5/325 MG* TAB PO PRN ×5 (05:30→22:35)
[2017-06-05] MEDS: Heparin VIAL(*) 5000 UNITS/ML VIAL (FIVE THOUSAND) SUBCUT SCH ×3 (05:31→22:24)
[2017-06-05 05:53] LABS: Hematocrit 38 % (42-52); Mean Platelet Volume 6.8 um3 (7.4-10.4); Platelet Count 302 10^3/ul (150-450)
[2017-06-05] MEDS: Insulin LISPRO* 1 UNITS UNIT SUBCUT SCH ×6 (08:04→22:22)
--- NOTE | 2017-06-05 08:35 | PN ---
Progress Note - Progress Note Date of Service: 06/05/17 SOAP: Subjective: []Patient seen at bedside. He feels well without fever, chills, CP, SOB. Shoulder pain is improved from yesterday Objective: [] Vital Signs Temp 98.6 F 06/05/17 11:18 Pulse 80 06/05/17 11:18 Resp 18 06/05/17 13:33 BP 113/61 06/05/17 11:18 Pulse Ox 94 06/05/17 11:18 Intake & Output 06/04/17 06/05/17 06/05/17 18:59 06:59 18:59 Intake Total 1459.9 1696 320 Output Total 400 1700 300 Balance 1059.9 -4 20 Intake: IV Fluids 208.9 476 NS (0.9%) 51 476 Oxacillin 157.9 IVPB 101 100 Oxacillin 101 100 Oral 1150 1120 320 Output: Urine 400 1700 300 Other: # Bowel Movements 0 Laboratory Last Values WBC 10.4 10^3/ul (3.5-10.8) 06/03/17 16:03 RBC 4.75 10^6/ul (4.0-5.4) 06/03/17 16:03 Hgb 13.0 g/dl (14.0-18.0) L 06/05/17 05:36 Hct 38 % (42-52) L 06/05/17 05:36 MCV 82 fL (80-94) 06/03/17 16:03 MCH 29 pg (27-31) 06/03/17 16:03 MCHC 35 g/dl (31-36) 06/03/17 16:03 RDW 14 % (10.5-15) 06/03/17 16:03 Plt Count 302 10^3/ul (150-450) 06/05/17 05:36 MPV 6.8 um3 (7.4-10.4) L 06/05/17 05:36 Neut % (Auto) 72.4 % (38-83) 06/03/17 16:03 Lymph % (Auto) 18.5 % (25-47) L 06/03/17 16:03 [place] % (Auto) 7.2 % (0-7) H 06/03/17 16:03 Eos % (Auto) 1.3 % (0-6) 06/03/17 16:03 Baso % (Auto) 0.6 % (0-2) 06/03/17 16:03 Absolute Neuts (auto) 7.5 10^3/ul (1.5-7.7) 06/03/17 16:03 Absolute Lymphs (auto) 1.9 10^3/ul (1.0-4.8) 06/03/17 16:03 Absolute Monos (auto) 0.7 10^3/ul (0-0.8) 06/03/17 16:03 Absolute Eos (auto) 0.1 10^3/ul (0-0.6) 06/03/17 16:03 Absolute Basos (auto) 0.1 10^3/ul (0-0.2) 06/03/17 16:03 Absolute Nucleated RBC 0 10^3/ul 06/03/17 16:03 Nucleated RBC % 0 06/03/17 16:03 ESR 0 mm/Hr (0-40) 06/03/17 16:03 INR (Anticoag Therapy) 1.18 (0.77-1.02) H 06/03/17 16:02 Sodium 136 mmol/L (139-145) L 06/04/17 05:59 Potassium 4.4 mmol/L (3.5-5.0) 06/04/17 05:59 Chloride 102 mmol/L (101-111) 06/04/17 05:59 Carbon Dioxide 27 mmol/L (22-32) 06/04/17 05:59 Anion Gap 7 mmol/L (2-11) 06/04/17 05:59 BUN 19 mg/dL (6-24) 06/04/17 05:59 Creatinine 0.91 mg/dL (0.67-1.17) 06/04/17 05:59 Est GFR ( Amer) 107.5 (>60) 06/04/17 05:59 Est GFR (Non-Af Amer) 83.6 (>60) 06/04/17 05:59 BUN/Creatinine Ratio 20.9 (8-20) H 06/04/17 05:59 Glucose 447 mg/dL (70-100) H 06/04/17 11:50 POC Glucose (mg/dL) 366 mg/dL (70-100) H 06/05/17 11:56 Calcium 8.6 mg/dL (8.6-10.3) 06/04/17 05:59 C-Reactive Protein 119.52 mg/L (< 5.00) H 06/03/17 16:03 Urine Color Yellow 06/04/17 10:20 Urine Appearance Clear 06/04/17 10:20 Urine pH 5.0 (5-9) 06/04/17 10:20 Ur Specific [place] 1.032 (1.010-1.030) H 06/04/17 10:20 Urine Protein Negative (Negative) 06/04/17 10:20 Urine Ketones 1+ (Negative) A 06/04/17 10:20 Urine Blood Negative (Negative) 06/04/17 10:20 Urine Nitrate Negative (Negative) 06/04/17 10:20 Urine Bilirubin Negative (Negative) 06/04/17 10:20 Urine Urobilinogen Negative (Negative) 06/04/17 10:20 Ur Leukocyte Esterase Negative (Negative) 06/04/17 10:20 Urine Glucose 3+(>=500 mg/dl) (Negative) A 06/04/17 10:20 General: Well appearing, NAD RUE: Shoulder dressing changed. Incisions CDI, no erythema or discharge. Passive forward flexion to 60 degrees. Passive abduction to 90 degrees. Unable to achieve active ROM at this time Assessment: []septic arthritis right shoulder due to MSSA s/p washout Plan: []WBAT and ROM as tolerated RUE PT/OT Per ID consult deeptiillin while in house, cefazolin 2 g Q 8 hours x 4-6 weeks at discharge PICC order placed. Insurance approved IV infusions. Will have teaching tomorrow and may d/c thereafter
[2017-06-05] MEDS: FLUoxetine CAP* 10 MG PO SCH (09:38)
[2017-06-05] MEDS ORDERED: Dextrose 50% Syringe 50 ML* 25 GM/50 ML SYRINGE IV PUSH PRN (10:53)
--- NOTE | 2017-06-05 12:09 | PN ---
Subjective Date of Service: 06/05/17 Interval History: Patient was seen and examined at bedside. Reports occasional mild right shoulder pain. Denies fever or chills. His POC blood glucose checks has been running high last night and this AM (>300). He informs me that he is also taking Glyburide at home in addition to Metformin, but he forgot to mention it when he got admitted to hospital. He has no complaints today. Family History: Unchanged from Admission Social History: Unchanged from Admission Past Medical History: Unchanged from Admission Objective Active Medications: Dextrose (D50w Syringe 50 Ml*) 12.5 gm IV PUSH .FOR FS < 60 - SS PRN PRN Reason: FS < 60 Dextrose (D50w Syringe 50 Ml*) 12.5 gm IV PUSH .FOR FS < 60 - SS PRN PRN Reason: FS < 60 Fluoxetine HCl (Prozac Cap*) 10 mg PO DAILY [facility] Last Admin: 06/05/17 09:38 Dose: 10 mg Heparin Sodium (Porcine) (Heparin Vial(*)) 5,000 units SUBCUT Q8HR [facility] Last Admin: 06/05/17 05:31 Dose: 5,000 units Oxacillin Sodium 2 gm/ Sodium (Chloride) 50 mls @ 100 mls/hr IV Q4H [facility] Last Admin: 06/05/17 10:03 Dose: 100 mls/hr Sodium Chloride (Ns 0.9% 1000 Ml*) 1,000 mls @ 75 mls/hr IV PER RATE [facility] Last Admin: 06/05/17 00:56 Dose: 75 mls/hr Insulin Glargine (Lantus(*)) 15 units SUBCUT Q12H [facility] Insulin Human Lispro (Humalog*) 0 units SUBCUT ACHS [facility] PRN Reason: Protocol Last Admin: 06/05/17 08:04 Dose: 12 units Insulin Human Lispro (Humalog*) 0 units SUBCUT AC [facility] PRN Reason: Protocol Ketorolac Tromethamine (Toradol Inj*) 15 mg IV PUSH Q6H [facility] Last Admin: 06/05/17 08:04 Dose: 15 mg Magnesium Hydroxide (Milk Of Magnesia Liq*) 30 ml PO Q6H PRN PRN Reason: constipation Magnesium Hydroxide (Milk Of Magnesia Liq*) 30 ml PO BID PRN PRN Reason: CONSTIPATION Morphine Sulfate (Morphine Inj (Syringe)*) 2 mg IV Q2H PRN PRN Reason: PAIN - SEVERE Morphine Sulfate (Morphine Vial*) 4 mg IV Q2H PRN PRN Reason: PAIN - BREAKTHROUGH Oxycodone HCl (Roxycodone Tab*) 10 mg PO Q4H PRN PRN Reason: PAIN - SEVERE Oxycodone/Acetaminophen (Percocet 5/325 Tab*) 2 tab PO Q4H PRN PRN Reason: PAIN - MODERATE Last Admin: 06/05/17 09:38 Dose: 2 tab Oxycodone/Acetaminophen (Percocet 5/325 Tab*) 1 tab PO Q4H PRN PRN Reason: PAIN - MILD Last Admin: 06/04/17 05:54 Dose: 1 tab Pravastatin Sodium (Pravachol (Nf)) 20 mg PO 1700 [facility] Last Admin: 06/04/17 17:12 Dose: 20 mg Zolpidem Tartrate (Ambien Tab*) 5 mg PO BEDTIME PRN PRN Reason: INSOMNIA Additional Medications: Lantus 15 units subQ BID added to Lispro sliding scale regimen Vital Signs - 8 hr 06/05/17 06/05/17 06/05/17 05:30 07:24 07:39 Temperature 98.5 F Pulse Rate 86 Respiratory 20 16 16 Rate Blood Pressure 133/61 (mmHg) O2 Sat by Pulse 92 92 Oximetry 06/05/17 06/05/17 08:08 09:38 Temperature Pulse Rate Respiratory 18 18 Rate Blood Pressure (mmHg) O2 Sat by Pulse Oximetry Oxygen Devices in Use Now: None Appearance: Awake, alert and oriented x3. Sitting on his bed, appears comfortable and in NAD Eyes: No Scleral Icterus, PERRLA Ears/Nose/Mouth/Throat: Mucous Membranes Moist Neck: NL Appearance and Movements; NL JVP, Trachea Midline Respiratory: Symmetrical Chest Expansion and Respiratory Effort, Clear to Auscultation Cardiovascular: NL Sounds; No Murmurs; No JVD, RRR Abdominal: NL Sounds; No Tenderness; No Distention Extremities: No Edema Neurological: Alert and Oriented x 3 Result Diagrams: 06/05/17 05:36 06/04/17 05:59 Microbiology and Other Data: Microbiology 06/03/17 16:09 Aerobic Blood Culture - Preliminary No Source Provided No Growth Day 1 Anaerobic Blood Culture - Preliminary No Growth Day 1 06/03/17 16:02 Aerobic Blood Culture - Preliminary No Source Provided No Growth Day 1 Anaerobic Blood Culture - Preliminary No Growth Day 1 Diagnostic Imaging: TTE reviewed, no vegetations identified. Assess/Plan/Problems-Billing Assessment: A 67 y/o male with PMH of RA, DM and hyperlipidemia, who was admitted with septic right shoulder, s/p R shoulder washout in the operating room on 06/03/2017 , with hyperglycemia secondary to infectious process. - Patient Problems (1) Septic arthritis of shoulder, right Current Visit: Yes Status: Acute Comment: - Continue Oxacillin per ortho. MRSA infection noted, ID consult reviewed. PICC line already ordered for outpatient IV antibiotics coverage. - Analgesics, pain is generally well controled. (2) Diabetes mellitus Comment: - Inadequate glycemic control, likely secondary to infection. - Increase Lantus to 15 units subQ BID - Continue Lispro coverage per sliding scale qAC and qHS; moving up the scale for more aggresive coverage. Also added units per carb count for every meal. (3) Hyperlipidemia associated with type 2 diabetes mellitus Comment: - Continue Statin coverage. (4) DVT prophylaxis Current Visit: Yes Comment: SubQ Heparin (5) Full code status Current Visit: Yes Comment: Patient is full code. Status and Disposition: Mr. Payton is generally doing well. Will continue his insulin coverage and monitor blood sugar. Will continue to follow him up for optimal glycemic control. I will add HgA1c to his labs tomorrow. I suspect he had some underlying poor glycemis control to begin with, definitely worsened with his ongoing infectious process.
[2017-06-05] MEDS: Insulin GLARGINE(*) 1 UNITS UNIT SUBCUT SCH ×2 (13:37→22:36)
[2017-06-05] MEDS: PRAVASTATIN 20 MG PO SCH (18:11)
[2017-06-06] MEDS: SODIUM CHLORIDE IV SCH ×6 (00:54→08:37)
[2017-06-06] MEDS: OXACILLIN IV SCH ×6 (00:54→08:37)
[2017-06-06] MEDS: Ketorolac INJ* 15 MG/ML 1 ML VIAL IV PUSH SCH ×3 (03:19→13:19)
[2017-06-06] MEDS: oxyCODONE/Acetamin 5/325 MG* TAB PO PRN ×2 (03:55→12:05)
[2017-06-06] MEDS: Heparin VIAL(*) 5000 UNITS/ML VIAL (FIVE THOUSAND) SUBCUT SCH ×2 (06:44→13:18)
[2017-06-06 06:48] LABS: Hematocrit 35 % (42-52); Hemoglobin 12.4 g/dl (14.0-18.0); Mean Platelet Volume 6.5 um3 (7.4-10.4); Platelet Count 330 10^3/ul (150-450)
[2017-06-06 07:01] LABS: EGFR Non-African American 119.1 (>60)
[2017-06-06] MEDS: FLUoxetine CAP* 10 MG PO SCH (08:38)
[2017-06-06] MEDS: Insulin LISPRO* 1 UNITS UNIT SUBCUT SCH ×4 (09:47→13:19)
[2017-06-06] MEDS: NS 0.9% 1000 ML* 1,000 ML IV SCH (11:35)
[2017-06-06] MEDS: Insulin GLARGINE(*) 1 UNITS UNIT SUBCUT SCH (11:58)
[2017-06-06 12:00] VITALS: BP 147/74
[2017-06-06] MEDS ORDERED: CEFAZOLIN IVPB SCH ×2 (12:00)
[2017-06-06] MEDS ORDERED: NS IVPB SCH ×2 (12:00)
[2017-06-06] MEDS ORDERED: [UNRECOGNIZED DRUG - OTHER] IVPB SCH ×2 (12:00)
--- NOTE | 2017-06-06 12:29 | PN ---
Progress Note - Progress Note Date of Service: 06/06/17 SOAP: Subjective: 67 y/o male with R shoulder MSSA infection s/p washout by Dr. Wyatt 06/04/2017. Patient feeling well, continued shoulder pain, worse with movements. Eager for D/C home, PICC placed yesterday, working well. no questions/ complaints. VSS, afebrile overnight. Objective: General- Well appearing, NAD, AO Sitting in bed comfortably, good energy. 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 Dressing removed, incision c/d/i, no drainage, erythema, redressed. Sutures intact. Vital Signs Temp 97.8 F 06/06/17 11:45 Pulse 78 06/06/17 11:45 Resp 18 06/06/17 12:05 BP 147/74 06/06/17 11:45 Pulse Ox 96 06/06/17 11:45 Intake & Output 06/05/17 06/06/17 06/06/17 18:59 06:59 18:59 Intake Total 640 3254 1051 Output Total 300 2275 Balance 463 778 6729 Intake: IV Fluids 284 993 NS (0.9%) 209 993 Oxacillin 75 IVPB 58 Oxacillin 58 Oral 640 2970 Output: Urine 300 2275 Other: # Bowel Movements 0 Assessment: Stable 67 y/o male with R shoulder MSSA infection s/p washout by Dr. Wyatt 06/04. Plan: - DVT prophylaxis-heparin in house - Continue PT/ OT - exercises shown, formal PT to start after f/u with Dr. Wyatt - Follow up with Dr. Wyatt within 10 days - H&H - stable - post-op IV ABX - continued, changed to cefazolin q8 per ID instructions. - Continue current pain regimen. Dextrose (D50w Syringe 50 Ml*) 12.5 gm IV PUSH .FOR FS < 60 - SS PRN PRN Reason: FS < 60 Dextrose (D50w Syringe 50 Ml*) 12.5 gm IV PUSH .FOR FS < 60 - SS PRN PRN Reason: FS < 60 Fluoxetine HCl (Prozac Cap*) 10 mg PO DAILY [facility] Last Admin: 06/06/17 08:38 Dose: 10 mg Heparin Sodium (Porcine) (Heparin Vial(*)) 5,000 units SUBCUT Q8HR [facility] Last Admin: 06/06/17 06:44 Dose: 5,000 units Heparin Sodium (Porcine) (Heparin Flush Picc/Ml/Cvc(*)) 1 - 3 ml FLUSH 0600, 1800 [facility] PRN Reason: Protocol Last Admin: 06/06/17 06:38 Dose: Not Given Sodium Chloride (Ns 0.9% 1000 Ml*) 1,000 mls @ 75 mls/hr IV PER RATE [facility] Last Admin: 06/06/17 11:35 Dose: 75 mls/hr Cefazolin Sodium 2 gm/ Sodium (Chloride) 20 mls @ 60 mls/hr IVPB Q8H [facility] Insulin Glargine (Lantus(*)) 15 units SUBCUT Q12H [facility] Last Admin: 06/06/17 11:58 Dose: 15 units Insulin Human Lispro (Humalog*) 0 units SUBCUT ACHS [facility] PRN Reason: Protocol Last Admin: 06/06/17 09:47 Dose: 6 units Insulin Human Lispro (Humalog*) 0 units SUBCUT AC [facility] PRN Reason: Protocol Last Admin: 06/06/17 09:47 Dose: 5 units Ketorolac Tromethamine (Toradol Inj*) 15 mg IV PUSH Q6H [facility] Last Admin: 06/06/17 08:38 Dose: 15 mg Magnesium Hydroxide (Milk Of Magnesia Liq*) 30 ml PO Q6H PRN PRN Reason: constipation Last Admin: 06/06/17 09:48 Dose: 30 ml Magnesium Hydroxide (Milk Of Magnesia Liq*) 30 ml PO BID PRN PRN Reason: CONSTIPATION Morphine Sulfate (Morphine Inj (Syringe)*) 2 mg IV Q2H PRN PRN Reason: PAIN - SEVERE Morphine Sulfate (Morphine Vial*) 4 mg IV Q2H PRN PRN Reason: PAIN - BREAKTHROUGH Oxycodone HCl (Roxycodone Tab*) 10 mg PO Q4H PRN PRN Reason: PAIN - SEVERE Last Admin: 06/06/17 08:38 Dose: 10 mg Oxycodone/Acetaminophen (Percocet 5/325 Tab*) 2 tab PO Q4H PRN PRN Reason: PAIN - MODERATE Last Admin: 06/06/17 12:05 Dose: 2 tab Oxycodone/Acetaminophen (Percocet 5/325 Tab*) 1 tab PO Q4H PRN PRN Reason: PAIN - MILD Last Admin: 06/04/17 05:54 Dose: 1 tab Pravastatin Sodium (Pravachol (Nf)) 20 mg PO 1700 [facility] Last Admin: 06/05/17 18:11 Dose: 20 mg Zolpidem Tartrate (Ambien Tab*) 5 mg PO BEDTIME PRN PRN Reason: INSOMNIA
--- NOTE | 2017-06-06 17:09 | PN ---
Subjective Date of Service: 06/06/17 Interval History: Patient was seen and examined earlier today. Reports doing well, has no c/o today. Blood sugar POC checks with gradual improvement noted. Seen earlier by ortho and plans for discharge was set for today. Family History: Unchanged from Admission Social History: Unchanged from Admission Past Medical History: Unchanged from Admission Objective Vital Signs - 8 hr 06/06/17 06/06/17 06/06/17 11:38 11:45 12:05 Temperature 97.8 F Pulse Rate 78 Respiratory 16 20 18 Rate Blood Pressure 147/74 (mmHg) O2 Sat by Pulse 96 Oximetry Oxygen Devices in Use Now: None Appearance: Appears healthy and well-developed, comfortable and in NAD Eyes: No Scleral Icterus Ears/Nose/Mouth/Throat: Mucous Membranes Moist Neck: NL Appearance and Movements; NL JVP, Trachea Midline Respiratory: Symmetrical Chest Expansion and Respiratory Effort, Clear to Auscultation Cardiovascular: NL Sounds; No Murmurs; No JVD, RRR Abdominal: NL Sounds; No Tenderness; No Distention Neurological: Alert and Oriented x 3 Nutrition: Taking PO's Result Diagrams: 06/06/17 06:30 06/06/17 06:30 Microbiology and Other Data: Microbiology 06/03/17 16:09 Aerobic Blood Culture - Preliminary No Source Provided No Growth Day 1 Anaerobic Blood Culture - Preliminary No Growth Day 1 06/03/17 16:02 Aerobic Blood Culture - Preliminary No Source Provided No Growth Day 1 Anaerobic Blood Culture - Preliminary No Growth Day 1 Diagnostic Imaging: TTE reviewed, no vegetations identified. Assess/Plan/Problems-Billing Assessment: A 67 y/o male with PMH of RA, DM and hyperlipidemia, who was admitted with septic right shoulder, s/p R shoulder washout in the operating room on 06/03/2017 , with hyperglycemia secondary to infectious process. - Patient Problems (1) Septic arthritis of shoulder, right Status: Acute Comment: - Continue Oxacillin per ortho. MRSA infection noted, ID consult reviewed. PICC line already in place, d/c plans for today. (2) Diabetes mellitus Comment: - Better control with Lantus BID. - Resume Metformin and Glyburide at home as prescribed. (3) Hyperlipidemia associated with type 2 diabetes mellitus Comment: - Continue Statin at home. (4) DVT prophylaxis Comment: SubQ Heparin (5) Full code status Comment: Patient is full code. Status and Disposition: Mr. Payton is generally doing well. Will continue his home meds upon discharge. Plan to F/U with PCP and kinesiology professor next 1-2 weeks.
--- NOTE | 2017-06-06 23:34 | DS ---
AMENDED REPORT NOW INCLUDES COSIGNER DESIGNATION - ESIGNED BEFORE ADJUSTMENT DISCHARGE SUMMARY: DATE OF ADMISSION: 06/03/17 DATE OF DISCHARGE: 06/05/17 ATTENDING PROVIDER: Dr. Dwayne Wyatt * (DICTATED BY CALEB FRAUSTO) CHIEF COMPLAINT: 1. Right shoulder pain with positive cultures. 2. Postpolio syndrome. 3. Diabetes. 4. Rheumatoid arthritis. 5. Obesity. 6. Hyperlipidemia. 7. Occasional epistaxis. DISCHARGE DIAGNOSES: 1. Right shoulder MSSA infection, status post washout on 06/04/17. 2. Postpolio syndrome. 3. Diabetes. 4. Rheumatoid arthritis. 5. Obesity. 6. Hyperlipidemia. 7. Epistaxis on occasion. PROCEDURE: Right shoulder washout. CONSULTATIONS: 1. Physical Therapy. 2. Occupational Therapy. 3. Medicine. 4. Infectious Disease. BRIEF HISTORY: Mr. Payton is a pleasant 67-year-old gentleman who was seen by Dr. Wyatt at [facility] after having a difficulty with range of motion of his right shoulder. Aspiration was done at the office, which revealed a thick viscous yellowish greenish fluid positive for gram cocci and the patient was admitted to [facility] on 06/03/17 for IV antibiotics and further treatment. HOSPITAL COURSE: Mr. Payton was admitted to [facility] on 06/03/17. He underwent a right arthroscopic shoulder surgery with arthroscopic washout and debridement by Dr. Wyatt, which he tolerated well. The patient's Gram stain from 06/03/17 grew out MSSA. His blood cultures taken on 06/03/17 were negative. The patient was seen by Infectious Disease on 06/04/17 and was started on Aquacillin 2 g every 4 hours where he was here and transitioning to cefazolin 2 g every 8 hours for outpatient therapy to complete 4 to 6 weeks of treatment. He underwent a PICC placement on 06/05/17, which was uncomplicated. He continued to do well. His pain was controlled with p.o. Percocet. His DVT prophylaxis was managed in house with heparin. By 06/06/17, the patient was orthopedically and medically stable for discharge to go home with home services. PHYSICAL EXAMINATION: General: Well-appearing, in no acute distress, alert and oriented and appears stated age. Vital Signs: Temperature 97.8, pulse 78, respirations 18, blood pressure 147/74, pulse oxygenation 96% on room air. Right upper extremity, decreased band attacher strength when compared to the left hand due to pain in his shoulder. Passive range of motion of the wrist and elbow without difficulty. Passive range of motion of the right shoulder to forward flexion 70 degrees, abduction to 60 degrees. Dressing was removed. Incisions were clean dry and intact. No draining erythema. The areas were redressed and sutures were intact. DISCHARGE MEDICATIONS: 1. Cefazolin 2 mg q[address] Mckeon's orders. 2. Prozac 10 mg p.o. daily. 3. Percocet 5/325 one to two tablets every 4 to 6 hours as needed for pain. 4. Pravastatin 20 mg p.o. at 5 p.m. 5. Folic acid 1 tablet daily. 6. Glyburide 5 mg p.o. daily. 7. Metformin 500 mg p.o. b.i.d. 8. Vitamin B12. 9. Ibuprofen 200 to 600 mg p.o. every 4 to 6 hours as needed for pain. CONDITION ON DISCHARGE: Stable. DISCHARGE INSTRUCTIONS: Mrs. Payton is a very pleasant 67-year-old gentleman, status post right shoulder washout for MSSA infection. The patient will follow up with Dr. Wyatt in approximately 10 days. He will continue to do physical therapy at home as shown by the physical therapist and will do outpatient physical therapy after Dr. Wyatt's visit. He was cleared to shower tomorrow with regards to his shoulder; however, was told to continue compliance with his PICC line. He has a visiting home nurse services and home infusion services set up to help monitor the PICC line and to teach the patient self infusion. His pain is controlled with p.o. Percocet. Dr. Mckeon, the Infectious Disease doctor, will follow the patient in approximately 1 to 2 weeks with repeat lab work at that timeframe. He has been in contact with the patient's senior product development scientist, Dr. Warner, with regards to his next rituximab treatment. He was told to call our office if he has any fevers, redness, or increased pain and to go immediately to the ER with any chest pain or shortness of breath. CALEB FRAUSTO [id number]/[facility] #: [id number] MTDD
== END 2017-06-06 15:46 | disposition home health service (06) | DRG 502 ==
LOC: SSU 13:36 → OBSVTOIN 13:37
PROVIDERS: ADMIT Orthopaedic Surgery; ATTEND Internal Medicine
PROC: 0LD Tendons, Extraction (ICD-10-PCS; principal; 2017-06-03 17:00)
PROC: 05HY33Z Insertion of Infusion Device into Upper Vein, Percutaneous Approach (ICD-10-PCS; 2017-06-05)
DX: M00.011 Staphylococcal arthritis, right shoulder (principal); E11.65 Type 2 diabetes mellitus with hyperglycemia; B95.61 Methicillin susceptible Staphylococcus aureus infection as the cause of diseases classified elsewhere; G14 Postpolio syndrome; M06.9 Rheumatoid arthritis, unspecified; E66.9 Obesity, unspecified; M25.411 Effusion, right shoulder; E78.5 Hyperlipidemia, unspecified; Z68.25 Body mass index [BMI] 25.0-25.9, adult; Z83.3 Family history of diabetes mellitus; Z87.891 Personal history of nicotine dependence; Z79.84 Long term (current) use of oral hypoglycemic drugs; Z79.899 Other long term (current) drug therapy; Z88.1 Allergy status to other antibiotic agents
CPT/HCPCS: 36415; 71046; 80048; 81003; 82947; 83036; 85014; 85018; 85025; 85049; 85610; 85652; 86140; 87040; 93005; 93306; 94760; A9270-GY; G8978-GP-CI; G8979-GP-CI; G8980-GP-CI; G8987-GO-CI; G8988-GO-CI; G8989-GO-CI; J0690; J1170; J1644; J1885; J2250; J2405; J2700; J2704; J3010